=== PATIENT | male | born 1970 | race Caucasian/White ===

== ENCOUNTER 2020-05-31 13:15 | Emergency (ER) | payer OTHER ==
[~2020-05-31] VITALS: Ht 185.4 cm; Wt 97.5 kg
[2020-05-31 13:25] VITALS: BP 112/74; Ht 185.4 cm; Wt 97.5 kg
== END 2020-05-31 15:02 | disposition home or self-care (01) ==
LOC: ED 13:15
DX: S81.811A Laceration without foreign body, right lower leg, initial encounter (principal); W18.40XA Slipping, tripping and stumbling without falling, unspecified, initial encounter; Y93.89 Activity, other specified; Y92.89 Other specified places as the place of occurrence of the external cause; Y99.8 Other external cause status
CPT/HCPCS: 90715; J2001